=== PATIENT | male | born 1985 | race Caucasian/White ===

== ENCOUNTER 2021-01-16 20:55 | Emergency (ER) | payer SELFPAY ==
[~2021-01-16] VITALS: Ht 182.9 cm; Wt 72.9 kg
[2021-01-16 20:57] VITALS: BP 117/84
== END 2021-01-16 23:25 | disposition left against medical advice (07) ==
LOC: ED 21:25
DX: F10.220 Alcohol dependence with intoxication, uncomplicated (principal); Y90.0 Blood alcohol level of less than 20 mg/100 ml
CPT/HCPCS: 99281